=== PATIENT | male | born 1960 | race Caucasian/White ===

== ENCOUNTER 2020-03-18 22:24 | Observation (INO) ==
[2020-03-18] MEDS ORDERED: NITROGLYCERIN SL 0.4 MG/TAB TAB SL STA (22:50)
[2020-03-18] MEDS ORDERED: ASPIRIN 81 MG CHEW PO STA (22:50)
--- NOTE | 2020-03-18 22:56 | Emergency Department Note ---
Impression & Plan Left-sided chest pain ED Provider Note Name: CARLOS MONGE Age: 59 Sex: M Arrives Via: Walk-In Informant: Patient ED Provider: Parish Souza MD Chief Complaint: Left Chest Pain Impression: Left-Sided Chest Pain Medical Decision Makin yr old male with extensive family history cardiac disease though patient with no diagnosed PMH arrives with waxing/waning left chest pain radiating to left shoulder. Initialy EKG with tachy though no STEMI appreciated. There is mild pleuritic component thus Dimer done in setting of mild tachycardia which was wnl. Pain improved with initial SLNTG but returned and thus further SLNTG with paste given. Initial Trop negative but in setting of waxing/waning pain and history felt that not acceptable discharge risk. HR came down to 90s with pain improvement. CXR without any overt abnormal findings. Labs otherwise unremarkable. Patient stable and feeling better though agreeable to hospitalization. Reviewed with Hospitalist for further management and evaluation. Prior Medical Record and Triage/Nursing Notes reviewed by Me Additional history obtained from Differentials:Cardiac ischemia, aortic dissection, pulmonary embolism, pneumothorax, pneumonia, pericarditis, myocarditis, esophageal rupture, GERD, cholecystitis, pancreatitis, musculoskeletal, as well as other pathologies. Vital Signs: reviewed and remarkable for tachy Interventions: asa 324mg PO, slntg x 2, nitro paste Labs:Reviewed and remarkable for normal dimer and trop Imaging:X ray results are stated below per my interpretation: Chest: 1 view: No infiltrate, no effusion, normal cardiac border. EKG:Per My Interpretation: Indication Chest Pain: Sinus Tach 105 bpm, qtc 446. No Ectopy. No Ischemia. No previous for comparison Cardiac/Tele Monitoring: Cardiac Monitoring: An Order was placed for continuous cardiac monitoring. The monitor shows a rate of 105 with a sinus tach rhythm. Consults:Dr Christiana Christian Hospitalist Plan: Disposition:Hospitalization. Referred to: PCP Condition: Good Blood pressure:Normal.No Referral necessary Prescriptions:None PDMP: n/a History of Present Illness:59 / M arrives for evaluation of left chest pain. Patient notes he was working hard at work a few days ago and developed some left back pain. This resolved and he was feeling well yesterda. This morning (~10 hrs ago) he awoke and was getting up and noted left anterior chest pain. Comes and goes in waves. Sharp at it's worst, but otherwise is dull. Associated with nothing. Denies SHOB but does admit worse with deep inspiration. Radiates to left shoulder. No nausea, vomiting, syncope, palpitations, current back pain, abdominal pain, urinary/bowel changes, leg swelling, fevers, chills, rashes, calf pain, nor other symptoms. Rest seems to improve symptoms. Motrin taken earlier in day with minimal change. No PMH. Remote smoking history 30 yrs ago. Father and both brothers with MIs. No family nor patient history of DVT/PE. No recent travel. ROS: See above HPI for pertinent positives & negatives. A total of 10 systems reviewed and were otherwise negative. 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 EYES: No scleral icterus, unremarkable pupils. ENT: Mucous membranes moist, no nasal congestion. NECK: No masses appreciated, nomeningismus, trachea is midline. RESPIRATORY: No dyspnea. Clear to auscultation and equal bilaterally. No wheeze, no rhonchi. CARDIOVASCULAR: Tachy.No murmurs, rubs, gallops appreciated. GASTROINTESTINAL: Abdomen soft, non-tender, no peritonitis.Bowel sounds positive.No masses appreciated. BACK: No midline tenderness, no CVA tenderness EXTREMITIES: Normal motion all extremities, no cyanosis, no edema. NEUROLOGIC: Alert and oriented, no acute motor or sensory deficits, no focal weakness, cranial nerves grossly intact. SKIN: No rash, no jaundice, no diaphoresis. PSYCH: Appropriate GCS: 15 ED Course: Times/Reassessments: Feeling better post slntg Parish Souza MD Past Med/Surg History Social History Preferred Language: Portuguese Feels Safe at Home: Yes Smoking Status: Former smoker Allergies Allergies Allergy/AdvReac Type Severity Reaction Status Date / Time No Known Allergies Allergy Unverified 03/18/20 23:11 Home Meds Home Medications Medication Instructions Recorded Confirmed No Known Home Medications 03/18/20 03/18/20 Results & Data (ED) Vital Signs Vital Signs - 24 hr 03/18/20 22:26 03/18/20 22:37 03/18/20 22:40 Temperature 37.5 C Temperature Source Oral Pulse Rate 110 H 107 H 104 H Pulse Rate [Apical] Pulse Rate from SpO2 Sensor Pulse Rhythm Regular Pulse Strength Normal Respiratory Rate 20 20 17 Respiratory Effort / Characteristics Non-Labored Respiratory Depth Normal Respiratory Pattern Regular Blood Pressure 158/97 H Blood Pressure [Right Arm] Blood Pressure Mean 117 Blood Pressure Mean [Right Arm] Blood Pressure Position Sitting Pulse Oximetry 96 Oxygen Delivery Method Room Air Sepsis Recent Fever Within 48 Hours No Sepsis Action Taken by Nursing No Action Required 03/18/20 22:50 03/18/20 23:00 03/18/20 23:10 Temperature Temperature Source Pulse Rate 100 H 100 H 102 H Pulse Rate [Apical] Pulse Rate from SpO2 Sensor Pulse Rhythm Pulse Strength Respiratory Rate 22 24 23 Respiratory Effort / Characteristics Respiratory Depth Respiratory Pattern Blood Pressure Blood Pressure [Right Arm] Blood Pressure Mean Blood Pressure Mean [Right Arm] Blood Pressure Position Pulse Oximetry Oxygen Delivery Method Sepsis Recent Fever Within 48 Hours Sepsis Action Taken by Nursing 03/18/20 23:15 03/18/20 23:20 03/18/20 23:30 Temperature Temperature Source Pulse Rate 100 H 108 H 100 H Pulse Rate [Apical] Pulse Rate from SpO2 Sensor 109 H 108 H Pulse Rhythm Pulse Strength Respiratory Rate 27 H 22 24 Respiratory Effort / Characteristics Respiratory Depth Respiratory Pattern Blood Pressure 141/90 H Blood Pressure [Right Arm] Blood Pressure Mean 102 Blood Pressure Mean [Right Arm] Blood Pressure Position Pulse Oximetry 92 90 Oxygen Delivery Method Sepsis Recent Fever Within 48 Hours Sepsis Action Taken by Nursing 03/18/20 23:35 03/18/20 23:40 03/18/20 23:45 Temperature Temperature Source Pulse Rate 103 H 98 H 100 H Pulse Rate [Apical] Pulse Rate from SpO2 Sensor 103 H 93 H 99 H Pulse Rhythm Pulse Strength Respiratory Rate 22 22 18 Respiratory Effort / Characteristics Respiratory Depth Respiratory Pattern Blood Pressure 126/86 Blood Pressure [Right Arm] Blood Pressure Mean 99 Blood Pressure Mean [Right Arm] Blood Pressure Position Pulse Oximetry 93 94 94 Oxygen Delivery Method Sepsis Recent Fever Within 48 Hours Sepsis Action Taken by Nursing 03/18/20 23:50 03/18/20 23:55 03/19/20 00:00 Temperature Temperature Source Pulse Rate 100 H 101 H 95 H Pulse Rate [Apical] Pulse Rate from SpO2 Sensor 100 H 101 H 95 H Pulse Rhythm Pulse Strength Respiratory Rate 24 26 H 26 H Respiratory Effort / Characteristics Respiratory Depth Respiratory Pattern Blood Pressure 117/84 Blood Pressure [Right Arm] Blood Pressure Mean 95 Blood Pressure Mean [Right Arm] Blood Pressure Position Pulse Oximetry 93 93 94 Oxygen Delivery Method Sepsis Recent Fever Within 48 Hours Sepsis Action Taken by Nursing 03/19/20 00:05 03/19/20 00:10 03/19/20 00:15 Temperature Temperature Source Pulse Rate 98 H 97 H 101 H Pulse Rate [Apical] Pulse Rate from SpO2 Sensor 98 H 98 H 101 H Pulse Rhythm Pulse Strength Respiratory Rate 21 29 H 30 H Respiratory Effort / Characteristics Respiratory Depth Respiratory Pattern Blood Pressure Blood Pressure [Right Arm] Blood Pressure Mean Blood Pressure Mean [Right Arm] Blood Pressure Position Pulse Oximetry 93 94 94 Oxygen Delivery Method Sepsis Recent Fever Within 48 Hours Sepsis Action Taken by Nursing 03/19/20 00:20 03/19/20 00:25 03/19/20 00:30 Temperature Temperature Source Pulse Rate 100 H 102 H 97 H Pulse Rate [Apical] Pulse Rate from SpO2 Sensor 99 H 99 H 97 H Pulse Rhythm Pulse Strength Respiratory Rate 26 H 31 H 26 H Respiratory Effort / Characteristics Respiratory Depth Respiratory Pattern Blood Pressure 130/96 Blood Pressure [Right Arm] Blood Pressure Mean 108 Blood Pressure Mean [Right Arm] Blood Pressure Position Pulse Oximetry 94 94 94 Oxygen Delivery Method Sepsis Recent Fever Within 48 Hours Sepsis Action Taken by Nursing 03/19/20 00:33 03/19/20 00:35 03/19/20 00:40 Temperature Temperature Source Pulse Rate 99 H 105 H Pulse Rate [Apical] 100 H Pulse Rate from SpO2 Sensor 98 H 105 H Pulse Rhythm Pulse Strength Respiratory Rate 14 23 27 H Respiratory Effort / Characteristics Non-Labored Spontaneous Respiratory Depth Normal Respiratory Pattern Blood Pressure Blood Pressure [Right Arm] 130/96 Blood Pressure Mean Blood Pressure Mean [Right Arm] 107 Blood Pressure Position Pulse Oximetry 98 93 92 Oxygen Delivery Method Room Air Sepsis Recent Fever Within 48 Hours Sepsis Action Taken by Nursing 03/19/20 00:45 03/19/20 00:50 03/19/20 00:55 Temperature Temperature Source Pulse Rate 101 H 103 H 99 H Pulse Rate [Apical] Pulse Rate from SpO2 Sensor 102 H 100 H 100 H Pulse Rhythm Pulse Strength Respiratory Rate 25 H 19 24 Respiratory Effort / Characteristics Respiratory Depth Respiratory Pattern Blood Pressure Blood Pressure [Right Arm] Blood Pressure Mean Blood Pressure Mean [Right Arm] Blood Pressure Position Pulse Oximetry 93 93 95 Oxygen Delivery Method Sepsis Recent Fever Within 48 Hours Sepsis Action Taken by Nursing 03/19/20 01:00 03/19/20 01:05 Temperature Temperature Source Pulse Rate 99 H 100 H Pulse Rate [Apical] Pulse Rate from SpO2 Sensor 100 H 99 H Pulse Rhythm Pulse Strength Respiratory Rate 24 23 Respiratory Effort / Characteristics Respiratory Depth Respiratory Pattern Blood Pressure 116/86 Blood Pressure [Right Arm] Blood Pressure Mean 98 Blood Pressure Mean [Right Arm] Blood Pressure Position Pulse Oximetry 94 93 Oxygen Delivery Method Sepsis Recent Fever Within 48 Hours Sepsis Action Taken by Nursing Laboratory Data Result diagrams: 03/18/20 22:51 03/18/20 22:51 Lab Results 03/18/20 03/18/20 03/18/20 Range/Units 22:51 22:51 22:51 WBC 12.42 H (4.8-10.8) K/uL RBC 4.74 (4.7-6.1) M/uL Hgb 15.0 (14.0-18.0) g/dL Hct 43.4 (42-52) % MCV 91.6 (80-100) fL MCH 31.6 (25-34) pg MCHC 34.6 (32-36) g/dL RDW Std Deviation 43.0 (36.4-46.3) fL RDW Coeff of Rolando 12.8 (11.5-14.5) % Plt Count 295 (130-400) K/uL MPV 9.9 (7.4-10.4) fL Immature Gran % (Auto) 0.3 % Neut % (Auto) 67.2 % Lymph % (Auto) 17.7 % Pitkin % (Auto) 12.5 % Eos % (Auto) 2.1 % Baso % (Auto) 0.2 % Immature Gran # (Auto) 0.04 H (0.00-0.02) K/uL Neut # (Auto) 8.34 H (1.4-6.5) K/uL Lymph # (Auto) 2.20 (1.2-3.4) K/uL Pitkin # (Auto) 1.55 H (0.11-0.59) K/uL Eos # (Auto) 0.26 (0-0.5) K/uL Baso # (Auto) 0.03 (0-0.2) K/uL PT 10.0 (9.0-12.0) Seconds INR 0.9 (0.9-1.1) D-Dimer 290 (0-500) ug/L FEU Sodium 136 (136-145) mmol/L Potassium 3.7 (3.5-5.1) mmol/L Chloride 107 (98-107) mmol/L Carbon Dioxide 24 (21-32) mmol/L Anion Gap 6.0 (3-11) BUN 22 H (7-18) mg/dl Creatinine 1.11 (0.6-1.4) mg/dl Est Cr Clr Drug Dosing 78.5 ml/min Est GFR ( Amer) 85.0 Est GFR (Non-Af Amer) 73.3 BUN/Creatinine Ratio 19.5 (10-20) Glucose 150 H (70-99) mg/dl Calcium 8.9 (8.5-10.1) mg/dl Magnesium 2.1 (1.8-2.4) mg/dl Total Bilirubin 0.5 (0.2-1) mg/dl Direct Bilirubin 0.1 (0-0.2) mg/dl AST 14 L (15-37) U/L ALT 28 (12-78) U/L Alkaline Phosphatase 92 (45-117) U/L Troponin I < 0.015 (0-0.045) ng/ml Total Protein 7.5 (6.4-8.2) gm/dl Albumin 3.5 (3.4-5.0) gm/dl Lipase 155 (73-393) U/L Administered Medications Discontinued Medications Aspirin (Aspirin Chew) 324 mg PO NOW STA Stop: 03/18/20 22:51 Last Admin: 03/18/20 23:16 Dose: 324 mg Documented by: [id number] Morphine Sulfate (Morphine Sulfate) 2 mg IV NOW STA Stop: 03/19/20 01:10 Last Admin: 03/19/20 01:24 Dose: 2 mg Documented by: [id number] Nitroglycerin (Nitrostat) 0.4 mg SL NOW Stop: 03/18/20 22:51 Last Admin: 03/18/20 23:18 Dose: 0.4 mg Documented by: [id number] Nitroglycerin (Nitrostat) 0.4 mg SL NOW STA Stop: 03/19/20 00:23 Last Admin: 03/19/20 00:32 Dose: 0.4 mg Documented by: [id number] Nitroglycerin (Nitro-Bid 2%) 1 inch EXT NOW ONE Stop: 03/19/20 00:23 Last Admin: 03/19/20 00:32 Dose: 1 inch Documented by: [id number] Discharge Plan Visit Data *Final* Discharge Date/Time: 03/19/20 01:23 Chief Complaint: Chest Pain Stated Complaint: chest pain ED Provider: Parish Souza Discharge Problem: Left-sided chest pain Patient Disposition: Admitted As Inpatient Discharge Instructions Interventions: ED Discharge Assessment Last Done: 03/19/20 01:23
[2020-03-18 23:33] LABS: Basophils # (auto) 0.03 K/uL (0-0.2); Basophils % (auto) 0.2 %; Eosinophils # (auto) 0.26 K/uL (0-0.5); Eosinophils % (auto) 2.1 %; Hematocrit (blood only) 43.4 % (42-52); Immature Granulocytes # (auto) 0.04 K/uL (0.00-0.02); Immature Granulocytes % (auto) 0.3 %; Lymphocytes % (auto) 17.7 %; Mean Corpuscular Hemoglobin 31.6 pg (25-34); Mean Corpuscular Hgb Conc 34.6 g/dL (32-36); Mean Corpuscular Volume 91.6 fL (80-100); Mean Platelet Volume 9.9 fL (7.4-10.4); Monocytes # (auto) 1.55 K/uL (0.11-0.59); Monocytes % (auto) 12.5 %; Neutrophils # (auto) 8.34 K/uL (1.4-6.5); Neutrophils % (auto) 67.2 %; Platelet Count 295 K/uL (130-400); RDW Coefficient of Variation 12.8 % (11.5-14.5); Red Blood Count 4.74 M/uL (4.7-6.1); White Blood Count 12.42 K/uL (4.8-10.8)
[2020-03-18 23:44] LABS: D Dimer 290 ug/L FEU (0-500); INR 0.9 (0.9-1.1)
[2020-03-18 23:50] LABS: Alanine Aminotransferase 28 U/L (12-78); Albumin Level 3.5 gm/dl (3.4-5.0); Aspartate Aminotransferase 14 U/L (15-37); BUN Creatinine Ratio 19.5 (10-20); Bilirubin Direct 0.1 mg/dl (0-0.2); Blood Urea Nitrogen 22 mg/dl (7-18); Calcium 8.9 mg/dl (8.5-10.1); Carbon Dioxide 24 mmol/L (21-32); Chloride 107 mmol/L (98-107); Creatinine Clr Calc Pharmacy 78.5 ml/min; Est GFR (Non-African American) 73.3; Glucose 150 mg/dl (70-99); Lipase 155 U/L (73-393); Magnesium 2.1 mg/dl (1.8-2.4); Potassium 3.7 mmol/L (3.5-5.1); Sodium 136 mmol/L (136-145)
[2020-03-18 23:54] LABS: Alkaline Phosphatase 92 U/L (45-117); Bilirubin,Total 0.5 mg/dl (0.2-1); Total Protein 7.5 gm/dl (6.4-8.2); Troponin I < 0.015 ng/ml (0-0.045)
[2020-03-19] MEDS ORDERED: NITROGLYCERIN 2% OINTMENT 30GM TUBE EXT ONE (00:22)
[2020-03-19] MEDS ORDERED: NITROGLYCERIN SL 0.4 MG/TAB TAB SL STA (00:22)
[2020-03-19] MEDS ORDERED: MoRPHine SULFATE 2 MG/ML CARP IV STA ×2 (01:09→03:43)
[2020-03-19] MEDS ORDERED: ONDANSETRON INJ 2 MG/ML 2 ML VIAL IV PRN (02:06)
[2020-03-19] MEDS ORDERED: ACETAMINOPHEN 325 MG TAB PO PRN (02:06)
[2020-03-19] MEDS ORDERED: NITROGLYCERIN SL 0.4 MG/TAB TAB SL PRN (02:06)
--- NOTE | 2020-03-19 02:07 | History and Physical Report ---
DATE OF ADMISSION: 03/19/2020 CHIEF COMPLAINT: Chest pain. HISTORY OF PRESENT ILLNESS: A 59-year-old male with no significant past medical history, who presents with chest pain. 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 A couple of days ago, he lifted a heavy weight and had some back pain, but since Saturday morning he noticed some chest pain. He went to work, it seemingly got better, but when he came home at evening at dinnertime he noticed chest pain again coming back in the left side of the chest. While watching TV, it was getting worse, 8/10 in severity, when he decided to come to the ER. No radiation, no associated shortness of breath or nausea or dizziness or sweating. It comes and goes. He was given nitro and was placed on nitro paste, but still it is coming and going . Denies any headache, no other complaints. No blurred visions. No earache, no runny nose, no sore throat, no cough, no loss of smell or taste. No exposure to sick patients or travel outside. No nausea, no abdominal pain. Normal bowel and bladder movements. No hematuria or blood in the stools. No swelling in the legs, no rash. He has significant family history. Father had heart disease in his 40s and because of major heart attack at the age of 59. Brother has heart problems. ALLERGIES: No known drug allergies. PAST MEDICAL HISTORY: Nothing significant. PAST SURGICAL HISTORY: Colonoscopy. MEDICATIONS: None. FAMILY HISTORY: Significant for father has diabetes, hypertension, heart trouble in 40s and at age of 59; mother has emphysema; paternal grandmother had stroke. SOCIAL HISTORY: . No smoking, no alcohol, no drug use. REVIEW OF SYSTEMS: As per HPI. Rest of the review of systems negative. PHYSICAL EXAMINATION: GENERAL: The patient is of moderate built, not in acute distress. VITAL SIGNS: Temperature 37.5, pulse 108, respiratory rate 24, blood pressure 116/86, oxygen 92% on room air. HEENT: No pallor, no icterus. Pupils equal, round, reactive to light. NECK: No JVD, no neck masses, no carotid bruits. CARDIOVASCULAR: S1, S2 heard, regular rate and rhythm, no murmur, no gallop. RESPIRATORY SYSTEM: Normal AP diameter. No accessory muscle use. No wheezing, no crackles. ABDOMEN: Soft, bowel sounds present, nontender. No distention. CENTRAL NERVOUS SYSTEM: Cranial nerves II-XII grossly intact. Nonfocal. EXTREMITIES: No edema, no erythema. LABORATORY DATA: WBC 12.24, hemoglobin 15, hematocrit 43.4, platelets 295. PT 10, INR 0.98. D-dimer 290. Sodium 136, potassium 3.7, chloride 107, bicarbonate 24, BUN 22, creatinine 1.1, serum glucose 150, calcium 8.9, magnesium 2.1, total bilirubin 0.5, direct bilirubin 0.1, AST 14, ALT 28, alkaline phosphatase 92. Troponin I less than 0.015. Lipase 155. IMAGING DATA: Chest x-ray, no acute findings seen. EKG: Sinus tachycardia at the rate of 105, no acute ST changes seen. ASSESSMENT AND PLAN: This is a 59-year-old male who presents with chest pain. 1. Chest pain, rule out acute coronary syndrome. Initial workup is negative. Risk factors of age and significant family history. We will observe in tele floor. Serial cardiac enzymes, echocardiogram. We will get fasting lipid profile, keep him n.p.o. for now and consult cardiology in the a.m. for further recommendations. 2. Deep venous thrombosis prophylaxis, sequential compression devices. DISPOSITION: Observe in med/surg tele. Expect to discharge home and follow with family doctor. Level 1 full code. MTDD
--- NOTE | 2020-03-19 07:10 | XRay Report ---
XR chest 1V portable CLINICAL HISTORY: Chest Pain dyspnea COMPARISON STUDY: No previous studies for comparison. FINDINGS: Minimal atelectasis left base. Lungs otherwise appear clear. Diaphragms are smooth. IMPRESSION: Minimal atelectasis left base. Otherwise negative study. ACT 112: Negative or not required by law. The above report was generated using voice recognition software. It may contain grammatical, syntax or spelling errors. Electronically signed by: Angel Matthews M.D. 03/19/2020 7:09 AM
[2020-03-19 07:35] LABS: Basophils # (auto) 0.02 K/uL (0-0.2); Basophils % (auto) 0.1 %; Eosinophils # (auto) 0.05 K/uL (0-0.5); Eosinophils % (auto) 0.3 %; Hematocrit (blood only) 40.9 % (42-52); Hemoglobin 14.2 g/dL (14.0-18.0); Immature Granulocytes # (auto) 0.05 K/uL (0.00-0.02); Immature Granulocytes % (auto) 0.3 %; Lymphocytes # (auto) 1.82 K/uL (1.2-3.4); Lymphocytes % (auto) 11.6 %; Mean Corpuscular Hemoglobin 32.1 pg (25-34); Mean Corpuscular Hgb Conc 34.7 g/dL (32-36); Mean Corpuscular Volume 92.5 fL (80-100); Mean Platelet Volume 10.3 fL (7.4-10.4); Monocytes # (auto) 1.51 K/uL (0.11-0.59); Monocytes % (auto) 9.6 %; Neutrophils # (auto) 12.28 K/uL (1.4-6.5); Neutrophils % (auto) 78.1 %; Platelet Count 298 K/uL (130-400); RDW Standard Deviation 44.1 fL (36.4-46.3); Red Blood Count 4.42 M/uL (4.7-6.1); White Blood Count 15.73 K/uL (4.8-10.8)
--- NOTE | 2020-03-19 07:40 | Hospitalist Progress Note ---
Date of Service March 19, 2020 Assessment & Plan (1) Left-sided chest pain: (2) Leukocytosis: (3) Costochondritis: Check a DDimer, CTA chest if Positive, CP is reproducible, Miya neg so far, Cards to see, Either has Chostochondritis/Pleurisy/PNA or PE, May treat for PNA due to rising WBCs, EKG Reviewed, Rocephin and Zmax Labs checked ROS-No Headache, No Visual Changes, No Nausea, No Vomiting, No Fever, No Chills, No Neck Pain or Stiffness, + Chest Pain L Side c Minimal Palpation, No Palpitations, No SOB, No LI, No Cough, No Sputum, No Wheezing, No Abdominal Pain, No Diarrhea, No Hematemesis, No Hemoptysis, No Unexpected Weight Loss, No Flank pain, No Melena, No Hematochezia, No Frequency, No Urgency, No Burning, No Hematuria, No Rashes, No Diaphoresis. Appetite is Normal Physical Exam Gen-AAO x 3, NAD, Afebrile Head-NCAT, EOMI, PERRLA, Anicteric Sclera, No Posterior Pharyngeal Erythema Neck-Supple, No JVD, No Thyromegaly, No Masses, No LAD, No Bruits Lungs-Clear to Auscultation Bilaterally, No Rales, No Rhonchi, No Wheezing, No Crepitus Chest-No S4, +S1, +S2, No S3, No Murmurs, No Rubs, No Gallops, No Ectopy Abdomen-Soft, Bowel Sounds Present, Non Tender, Non Distended, No Hepatomegaly, No Splenomegaly, No Palpable Masses, No Rebound, No Rigidity, No Guarding Musculoskeletal-Full Range of Motion Bilaterally, No CVAT Extremities-No Cyanosis, No Clubbing, No Edema Nuero-Cranial Nerves II-XII grossly intact, Motor WNL, DTRs WNL, Strength WNL, Non Focal Psych-Normal Mood Admission and Anticipated Discharge Date Admission Date: March 19, 2020 Anticipated date of discharge: 03/20/20 Results & Data Results & Data ([facility]) Vital Signs (Past 12 Hours) Vital Signs Temp Pulse Pulse Pulse Resp BP BP 03/19/20 07:22 93 H 03/19/20 06:00 68 135/80 03/19/20 02:56 37 C 109 H 20 152/79 H 03/19/20 01:51 37.3 C 108 H 21 139/88 03/19/20 01:23 100 H 16 129/86 03/19/20 01:10 108 H 24 03/19/20 01:05 100 H 23 03/19/20 01:00 99 H 24 116/86 03/19/20 00:55 99 H 24 03/19/20 00:50 103 H 19 03/19/20 00:45 101 H 25 H 03/19/20 00:40 105 H 27 H 03/19/20 00:35 99 H 23 03/19/20 00:33 100 H 14 130/96 03/19/20 00:30 97 H 26 H 130/96 03/19/20 00:25 102 H 31 H 03/19/20 00:20 100 H 26 H 03/19/20 00:15 101 H 30 H 03/19/20 00:10 97 H 29 H 03/19/20 00:05 98 H 21 03/19/20 00:00 95 H 26 H 117/84 03/18/20 23:55 101 H 26 H 03/18/20 23:50 100 H 24 03/18/20 23:45 100 H 18 03/18/20 23:40 98 H 22 03/18/20 23:35 103 H 22 126/86 03/18/20 23:30 100 H 24 03/18/20 23:20 108 H 22 03/18/20 23:15 100 H 27 H 141/90 H 03/18/20 23:10 102 H 23 03/18/20 23:00 100 H 24 03/18/20 22:50 100 H 22 03/18/20 22:40 104 H 17 03/18/20 22:37 107 H 20 03/18/20 22:26 37.5 C 110 H 20 158/97 H Pulse Ox 03/19/20 07:22 03/19/20 06:00 03/19/20 02:56 96 03/19/20 01:51 90 03/19/20 01:23 95 03/19/20 01:10 92 03/19/20 01:05 93 03/19/20 01:00 94 03/19/20 00:55 95 03/19/20 00:50 93 03/19/20 00:45 93 03/19/20 00:40 92 03/19/20 00:35 93 03/19/20 00:33 98 03/19/20 00:30 94 03/19/20 00:25 94 03/19/20 00:20 94 03/19/20 00:15 94 03/19/20 00:10 94 03/19/20 00:05 93 03/19/20 00:00 94 03/18/20 23:55 93 03/18/20 23:50 93 03/18/20 23:45 94 03/18/20 23:40 94 03/18/20 23:35 93 03/18/20 23:30 90 03/18/20 23:20 92 03/18/20 23:15 03/18/20 23:10 03/18/20 23:00 03/18/20 22:50 03/18/20 22:40 03/18/20 22:37 03/18/20 22:26 96
[2020-03-19] MEDS ORDERED: cefTRIAXone SODIUM 1,000 MG in DEXTROSE 5% 50 ML IV SCH ×2 (07:45→09:00)
[2020-03-19] MEDS ORDERED: cefTRIAXone SODIUM 2,000 MG in DEXTROSE 5% 50 ML IV SCH (08:00)
[2020-03-19 08:07] LABS: BUN Creatinine Ratio 19.5 (10-20); Blood Urea Nitrogen 21 mg/dl (7-18); Calcium 8.8 mg/dl (8.5-10.1); Carbon Dioxide 26 mmol/L (21-32); Chloride 106 mmol/L (98-107); Cholesterol 163 mg/dl (0-200); Creatinine Clr Calc Pharmacy 82.2 ml/min; Est GFR (African American) 89.9; Est GFR (Non-African American) 77.5; Glucose 118 mg/dl (70-99); Magnesium 2.1 mg/dl (1.8-2.4); Potassium 3.7 mmol/L (3.5-5.1); Sodium 136 mmol/L (136-145); Triglycerides 106 mg/dl (0-150); VLDL Cholesterol 21 mg/dl
[2020-03-19 08:12] LABS: Chol HDL Ratio 5; HDL Cholesterol 31 mg/dl; LDL Cholesterol Calculated 111 mg/dl; Troponin I < 0.015 ng/ml (0-0.045)
[2020-03-19] MEDS: IBUPROFEN 600 MG TAB PO SCH ×2 (08:33→14:02)
[2020-03-19] MEDS ORDERED: ASPIRIN 81 MG ECTAB PO SCH (09:00)
[2020-03-19] MEDS ORDERED: AZITHROMYCIN 500 MG in DEXTROSE 5% 250 ML IV SCH (09:00)
--- NOTE | 2020-03-19 09:25 | Cardiology Consultation ---
Date of Consultation March 19, 2020 Assessment & Plan (1) Pleuritic chest pain: (2) Leukocytosis: (3) Elevated blood pressure, situational: (4) Dyslipidemia, goal LDL below 100: (5) Family history of premature CAD: 59-year-old patient admitted with waxing and waning left-sided pleuritic chest and back discomfort. Pain reproducible on examination as well as with deep inspiration. Leukocytosis noted with possible left lower lobe infiltrate/atelectasis per chest x-ray. Agree with empiric antibiotics as per internal medicine. Bedside 2D transthoracic echocardiogram without regional wall motion abnormality. Cardiac enzymes are undetectable and ECG within normal limits. Symptoms/presentation are not consistent with acute coronary syndrome. I suspect musculoskeletal etiology and/or pleurisy related to underlying pulmonary infectious/inflammatory process. Consider addition of nonsteroidal anti-inflammatory medication for further treatment. Recommend low-dose statin therapy to maintain LDL goal less than 100 mg/L given significant family history of premature coronary disease. Outpatient cardiology follow-up to consider stress testing for further re-stratification. Thank you for allowing me to participate in the care of your patient. History of Present Illness Reason for Consultation: Chest pain Requesting Physician: Dr. Villeda Attending Physician: Rashad Reynolds DO History of Present Illness 59-year-old patient presented to the emergency department with chest pain. Patient developed chest pain on Saturday morning. Reports heavy lifting and straining followed by back pain. This discomfort eventually radiated to the front of his chest. He stayed home from work Saturday. Pain gradually increased and he proceeded to the ER for further evaluation. In the ED he was treated with sublingual nitroglycerin as well as nitro paste. No significant relief noted. Discomfort has waxed and waned over the past 36 hours. Pain is pleuritic and worse with deep inspiration. Noted to have elevated white blood cell count and mild cough as well. Denies sputum production, fever, chills, or sick contacts. Pain is reproducible with palpation. Initial ECG within normal limits. Cardiac enzymes are negative x2 sets. Preliminary review of bedside 2D transthoracic echocardiogram performed during active chest discomfort demonstrates normal left ventricular systolic function, normal wall motion, no significant pericardial effusion. 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 Other Information That Helps Us Care for You: No Feels Safe at Home: Yes Safety Concerns: Feels Safe At This Time Smoking Status: Never smoker Hx Alcohol Use: No Hx Substance Use: No Review of Systems Review of Systems: All systems reviewed & are unremarkable except as noted in HPI & below Physical Exam Constitutional: well developed, well nourished and average body habitus; no acute distress and not ill appearing Respiratory: normal respiratory effort, lungs clear to auscultation Auscultation: no crackles, no rales, no rhonchi and no wheezes Cardiovascular: Rate/Rhythm: regular rate and regular rhythm Heart Sounds: normal S1 and normal S2; no murmur and no cardiac rub Vessels: no JVD and no carotid bruit Extremities: no edema Gastrointestinal (Abdomen): Inspection/Auscultation: abdomen normal to inspection and normal bowel sounds; abdomen not distended Percussion/Palpati on: abdomen soft; abdomen nontender, no guarding and abdomen not rigid Skin: no rashes, warm and dry Neurologic: moves all extremities; no focal motor deficits Speech / Cognition: normal speech Psychiatric: A+Ox3, euthymic affect Results & Data ([facility]) Vital Signs (Past 12 Hours) Vital Signs Temp Pulse Pulse Pulse Resp BP BP 03/19/20 07:39 36.9 C 98 H 18 148/81 H 03/19/20 07:22 93 H 03/19/20 06:00 68 03/19/20 02:56 37 C 109 H 20 03/19/20 01:51 37.3 C 108 H 21 03/19/20 01:23 100 H 16 03/19/20 01:10 108 H 24 03/19/20 01:05 100 H 23 03/19/20 01:00 99 H 24 116/86 03/19/20 00:55 99 H 24 03/19/20 00:50 103 H 19 03/19/20 00:45 101 H 25 H 03/19/20 00:40 105 H 27 H 03/19/20 00:35 99 H 23 03/19/20 00:33 100 H 14 03/19/20 00:30 97 H 26 H 130/96 03/19/20 00:25 102 H 31 H 03/19/20 00:20 100 H 26 H 03/19/20 00:15 101 H 30 H 03/19/20 00:10 97 H 29 H 03/19/20 00:05 98 H 21 03/19/20 00:00 95 H 26 H 117/84 03/18/20 23:55 101 H 26 H 03/18/20 23:50 100 H 24 03/18/20 23:45 100 H 18 03/18/20 23:40 98 H 22 03/18/20 23:35 103 H 22 126/86 03/18/20 23:30 100 H 24 03/18/20 23:20 108 H 22 03/18/20 23:15 100 H 27 H 141/90 H 03/18/20 23:10 102 H 23 03/18/20 23:00 100 H 24 03/18/20 22:50 100 H 22 03/18/20 22:40 104 H 17 03/18/20 22:37 107 H 20 03/18/20 22:26 37.5 C 110 H 20 158/97 H BP Pulse Ox 03/19/20 07:39 92 03/19/20 07:22 03/19/20 06:00 135/80 03/19/20 02:56 152/79 H 96 03/19/20 01:51 139/88 90 03/19/20 01:23 129/86 95 03/19/20 01:10 92 03/19/20 01:05 93 03/19/20 01:00 94 03/19/20 00:55 95 03/19/20 00:50 93 03/19/20 00:45 93 03/19/20 00:40 92 03/19/20 00:35 93 03/19/20 00:33 130/96 98 03/19/20 00:30 94 03/19/20 00:25 94 03/19/20 00:20 94 03/19/20 00:15 94 03/19/20 00:10 94 03/19/20 00:05 03/19/20 00:00 94 03/18/20 23:55 93 03/18/20 23:50 93 03/18/20 23:45 94 03/18/20 23:40 94 03/18/20 23:35 93 03/18/20 23:30 90 03/18/20 23:20 92 03/18/20 23:15 03/18/20 23:10 03/18/20 23:00 03/18/20 22:50 03/18/20 22:40 03/18/20 22:37 03/18/20 22:26 96 (1) Leukocytosis Leukocytosis type: unspecified Qualified Code(s): D72.829 - Elevated white blood cell count, unspecified
[2020-03-19 09:33] LABS: D Dimer 270 ug/L FEU (0-500)
--- NOTE | 2020-03-19 09:59 | CT Scan Report ---
CT chest wo con CLINICAL HISTORY: Suspected Pneumonia L Side SHORTNESS OF BREATH AND ATYPICAL CHEST PAIN. COMPARISON STUDY: Chest x-ray dated 03/18/2020 CT DOSE: 398.32 mGy.cm TECHNIQUE: CT of the thorax was performed from the thoracic inlet to the lung bases. Images are revi ewed in the axial, sagittal, and coronal planes. IV contrast was not administered for this examinatio n. A dose lowering technique was utilized adhering to the principles of ALARA. FINDINGS: Thyroid: Imaged portions of the thyroid gland are normal in appearance. Thoracic aorta: The thoracic aorta is normal in course and caliber, noting standard 3 vessel arch serenity kathy. Heart: The heart is normal in size and configuration, without pericardial effusion. Lungs and pleural spaces: There is a small left pleural effusion. There are dependent bilateral lower lobe opacities. While likely atelectatic, an infectious/inflammatory process could appear similar. Mediastinum: There is minimal infiltration of the anterior pericardial fat.. There is no pathologic m ediastinal lymphadenopathy. Rosa Isela: There is no evidence of pathologic hilar adenopathy given the limitations of a noncontrast stud y. Axilla: There is no evidence of pathologic axillary lymphadenopathy. Upper abdomen: Partially visualized upper abdominal viscera is within normal limits. Skeletal structures: There are no lytic or blastic osseous lesions. IMPRESSION: 1. Small left pleural effusion 2. Dependent bilateral pulmonary opacities, statistically atelectatic although an infectious/inflamma tory processes could appear similar 3. No evidence of pathologic adenopathy 4. Mild nonspecific infiltration of the anterior pericardial fat. ACT 112: Negative or not required by law. Electronically signed by: Shaun Luu M.D. 03/19/2020 9:57 AM
--- NOTE | 2020-03-19 13:00 | Discharge Summary ---
Date of Service March 19, 2020 Admission HPI Per Admitting Provider 59-year-old male with no significant past medical history, who presents with chest pain. 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 A couple of days ago, he lifted a heavy weight and had some back pain, but since Saturday morning he noticed some chest pain. He went to work, it seemingly got better, but when he came home at evening at dinnertime he noticed chest pain again coming back in the left side of the chest. While watching TV, it was getting worse, 8/10 in severity, when he decided to come to the ER. No radiation, no associated shortness of breath or nausea or dizziness or sweating. It comes and goes. He was given nitro and was placed on nitro paste, but still it is coming and going . Denies any headache, no other complaints. No blurred visions. No earache, no runny nose, no sore throat, no cough, no loss of smell or taste. No exposure to sick patients or travel outside. No nausea, no abdominal pain. Normal bowel and bladder movements. No hematuria or blood in the stools. No swelling in the legs, no rash. He has significant family history. Father had heart disease in his 40s and because of major heart attack at the age of 59. Brother has heart problems. Admission Exam Per Admitting Provider GENERAL: The patient is of moderate built, not in acute distress. VITAL SIGNS: Temperature 37.5, pulse 108, respiratory rate 24, blood pressure 116/86, oxygen 92% on room air. HEENT: No pallor, no icterus. Pupils equal, round, reactive to light. NECK: No JVD, no neck masses, no carotid bruits. CARDIOVASCULAR: S1, S2 heard, regular rate and rhythm, no murmur, no gallop. RESPIRATORY SYSTEM: Normal AP diameter. No accessory muscle use. No wheezing, no crackles. ABDOMEN: Soft, bowel sounds present, nontender. No distention. CENTRAL NERVOUS SYSTEM: Cranial nerves II-XII grossly intact. Nonfocal. EXTREMITIES: No edema, no erythema. Principal Diagnosis (1) Left-sided chest pain: (2) Leukocytosis: (3) Costochondritis: Probable Pneumonia/Pluerisy/Pleural Effusion Discharge Data Allergies Allergy/AdvReac Type Severity Reaction Status Date / Time No Known Allergies Allergy Unverified 03/18/20 23:11 Consultations 03/19/20 00:23 ED Decision to Admit Stat 03/19/20 02:06 Consult Case Management - Discharge Planning Routine 03/19/20 08:00 Consult Cardiology Routine Ordered Studies 03/19/20 08:26 CT chest wo con Routine Current Diagnoses Elevated white blood cell count, unspecified (03/19/20) Chondrocostal junction syndrome [Tietze] (03/19/20) Chest pain, unspecified (03/19/20) Allergies No Known Allergies Allergy (Unverified 03/18/20 23:11) Height/Weight/Isolation Height 5 ft 8 in Weight 86.3 kg Chemistry 03/18/20 03/19/20 22:51 06:22 Sodium 136 136 Potassium 3.7 3.7 Chloride 107 106 Carbon Dioxide 24 26 Anion Gap 6.0 4.0 BUN 22 H 21 H Creatinine 1.11 1.06 Glucose 150 H 118 H Hospital Course (1) Left-sided chest pain: (2) Leukocytosis: (3) Costochondritis: DDimer is negative, CT chest showed a L Pleural Effusion and possible infect ious/Inflammatory changes, CP is reproducible, Miya neg, Cards cleared him to go home, Either has Chostochondritis/Pleurisy/PNA. Will treat for PNA due to rising WBCs, DC on Cefdinir and Zmax Total Time Total Time Spent Total Time Spent (In Minutes): 45 mins Total Time Includes: Examination of the Patient, Discharge Planning, Medication Reconciliation and Communication With Other Providers Discharge Plan Discharge Items Patient Disposition: Home - Self-Care Reason For Visit: chest pain Discharge Diagnosis: (1) Left-sided chest pain: (2) Leukocytosis: (3) Costochondritis: Probable Pneumonia/Pluerisy/Pleural Effusion Condition on Discharge: Good Health Concerns: Needs PCP for follow up Activity: Resume your previous activity Lifting: Gradually increase as tolerated Bathing: No limitations Sexual Activity: When tolerated Exercise/Sports: Gradually increase as tolerated Driving/Machine Use: No limitations Weightbearing: Full weightbearing Non-emergency contact: Primary Care Provider Call non-emergency contact if: you have any medication questions Follow-up/Referrals: PCP,NO [Primary Care Provider] - (Pick a PCP to go to, you need a follow up Chest XRAY or CT Chest in 8 weeks) Diet: Regular Addtl Attending Provider Instructions: CT Chest or CXR in 8 weeks to make sure pneumonia resolves to full resolution Pending Studies at Discharge: No Stand-Alone Forms: My [facility], Smoking Cessation Medications and DC Order Prescriptions: New ibuprofen 600 mg Tablet 600 mg PO Q6H PRN (Reason: fever or pain) Qty: 60 RF: 0 cefdinir 300 mg capsule 300 mg PO BID 10 Days Qty: 20 RF: 0 azithromycin 500 mg tablet 500 mg PO DAILY 5 Days Qty: 5 RF: 0 No Action No Known Home Medications RF: 0 Discharge Orders: Discharge Order (Routine); Ordered 03/19/20 Ordered By: Rashad Reynolds Admission Data Admit Date/Time: 03/19/20 01:09 Attending Provider: Rashad Reynolds Admit Provider: Russ Villeda Primary Care Provider: PCP,NO Other Providers: Russ Villeda ; Jose Felder ; Layo Crane ; Ravi Dunn ; Jayson Weinstein ; Jv Mcleod ; Angel Reina ; Mary Grider ; Breanna Linda ; Mane Dyson
--- NOTE | 2020-03-20 07:25 | Electrocardiogram Report ---
Test Reason : Blood Pressure : / mmHG Vent. Rate : 105 BPM Atrial Rate : 105 BPM P-R Int : 124 ms QRS Dur : 086 ms QT Int : 338 ms P-R-T Axes : 051 005 052 degrees QTc Int : 446 ms Poor data quality, interpretation may be adversely affected Sinus tachycardia Otherwise normal ECG No previous ECGs available Confirmed by David Winn ([id number]) on 03/20/2020 7:24:51 AM Referred By: REFERRED SELF Confirmed By:David Winn
--- NOTE | 2020-03-20 07:34 | Electrocardiogram Report ---
Test Reason : Blood Pressure : / mmHG Vent. Rate : 095 BPM Atrial Rate : 095 BPM P-R Int : 132 ms QRS Dur : 094 ms QT Int : 360 ms P-R-T Axes : 036 012 030 degrees QTc Int : 452 ms Normal sinus rhythm Normal ECG When compared with ECG of 18-MAR-2020 22:33, (unconfirmed) No significant change was found Confirmed by David Winn ([id number]) on 03/20/2020 7:34:32 AM Referred By: REFERRED SELF Confirmed By:David Winn
== END 2020-03-19 14:43 | disposition home or self-care (01) ==
LOC: 2W 22:24 → ED 22:24 → 2W 03-19 01:23
DX: R03.0 Elevated blood-pressure reading, without diagnosis of hypertension; Z82.49 Family history of ischemic heart disease and other diseases of the circulatory system; M94.0 Chondrocostal junction syndrome [Tietze]